=== PATIENT | female | born 1960 | race Caucasian/White ===

== ENCOUNTER 2016-12-21 06:10 | Day surgery (SDC) | payer OTHER ==
[~2016-12-21] VITALS: Ht 162.6 cm; Wt 60.4 kg
[~2016-12-21 06:10] MED LIST: ASPI1TAB2 PO; IRON; STOMACH MED; [UNRECOGNIZED DRUG - CODE] PO
[2016-12-21 07:03] VITALS: Ht 162.6 cm; Wt 60.4 kg
[2016-12-21] MEDS ORDERED: CHOL400C PO (07:13)
[2016-12-21] MEDS ORDERED: LANS30CA PO (07:13)
[2016-12-21 07:14] VITALS: BP 116/72; PULSE 66; RESP 20
[2016-12-21] MEDS ORDERED: MIDAZOLAM 1 MG/ML 2 ML INJ ONE ×2 (08:34)
[2016-12-21] MEDS ORDERED: FENTAnyl 50 MCG/ML VIAL ONE (08:35)
[2016-12-21 08:44] VITALS: BP 105/62; RESP 22
--- NOTE | 2016-12-21 11:09 | GILP ---
DATE OF PROCEDURE: 12/21/2016 NAME OF PROCEDURES: 1. Esophagogastroduodenoscopy and biopsy. 2. Colonoscopy. SURGEON: Cindy Rashid MD POSTOPERATIVE DIAGNOSES: 1. Gastritis. 2. Gastric mucosal biopsies were taken for Helicobacter pylori test. 3. Small bowel biopsies were taken to rule out celiac disease. 4. Colonoscopy all the way to the cecum. 5. Internal hemorrhoids. 6. No neoplasm or any other bleeding lesion in the colon was identified. INDICATION FOR THE PROCEDURE: Mr. Naif Grubbs is a 56-year-old female patient who had iron defi ciency anemia. She also had upper abdominal pain not responding to therapy. She never had screenin g colonoscopy. The patient was scheduled for endoscopy and colonoscopy for further evaluation. The procedures and possible complications are well explained to the patient. The patient understood and consented to the procedure. DESCRIPTION OF PROCEDURE: Under the influence of fentanyl and Versed, the gastroscope was carefully introduced into the esophagus and under direct vision, it was advanced to the stomach and through t he pylorus into the duodenal bulb and descending duodenum. FINDINGS: ESOPHAGUS: The mucosa was normal. STOMACH: The patient had gastritis. Gastric mucosal biopsies were taken for H. pylori test. DUODENUM: Normal. Small bowel biopsies were taken to rule out celiac disease. The colonoscope was carefully introduced in the rectum and under direct vision, it was advanced all the way to the cecum. FINDINGS: The patient had internal hemorrhoids. No colon neoplasm or any other bleeding lesion was identified. She tolerated the procedures very well and there was no complication from the procedures. At the en d of the procedures, she was awake with stable vital signs and she was discharged home to the care o f her family. IMPRESSION: Please see postoperative diagnoses. PLAN: 1. Continue Prevacid. 2. Await histopathology reports. Dictated By: CINDY PARKS/DEMETRIUS Conf#: [id number] DID#: [id number] CC: CINDY RASHID MD;*EndCC*
== END 2016-12-21 09:24 | disposition home or self-care (01) ==
LOC: GIL 06:10
PROVIDERS: ATTEND Internal Medicine Gastroenterology
DX: K29.70 Gastritis, unspecified, without bleeding (principal); K64.8 Other hemorrhoids; D50.9 Iron deficiency anemia, unspecified
CPT/HCPCS: 43239; 45378; J2250; J3010; Z7610; 87081; 88305